=== PATIENT | male | born 1965 | race African-American/Black ===

== ENCOUNTER 2020-10-25 16:00 | Outpatient (RCR) | payer OTHER, SELFPAY ==
[2020-08-13 16:30] LABS: INR 2.9; Prothrombin Time 29.5 Seconds (11.1-14.7)
[2020-09-11 12:50] LABS: INR 2.7; Prothrombin Time 27.7 Seconds (11.1-14.7)
[2020-10-25 16:54] LABS: INR 2.4; Prothrombin Time 25.8 Seconds (11.1-14.7)
== END 2020-11-05 23:59 | disposition home or self-care (01) ==
LOC: ANHLAB 16:00
PROVIDERS: Visit Provider Specialist
DX: I48.0 Paroxysmal atrial fibrillation (principal)
CPT/HCPCS: 36415; 85610

== ENCOUNTER 2020-12-27 14:30 | Outpatient (RCR) | payer OTHER, SELFPAY ==
--- NOTE | 2020-10-16 13:14 | PTOPEVAL ---
Thank you for referring Yvan Bennett to [facility].? The patient is scheduled to be seen for therapy? 1-2 x/week for 5 weeks. Please review, sign, date and return this plan of care VAMSI. I agree with and certify that the following plan of care is medically necessary. 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 He received therapy during his stay 11/26 received prosthetics then received PT, prior to he received restorative therapy. He is lives alone in an apt. Care attended 3 hrs/day to assist with cleaning, laundry, meals. Subjective Information He is able to don/dof Query Text:As Reported By Patient/ prosthesis indep. Family left prosthesis 11 sock ply, no sock ply on right. Modification have been made to improve fit. He uses the ww for mobility. He performs 60 sit-ups, 30 leg lifts, 50 push-ups Previous Treatments Previous Treatments For This Problem SNF therapy Prior Level of Function Home Setting Home Type Apartment Living Situation Alone Support Available Local Family Support Mobility Assistive Devices (Used Last 3 Walker, Wheeled Months) Orthotic/Prosthetic Devices Left Lower Extremity Prosthesis,Right Lower Extremity Prosthesis Pain Assessment Timing of Pain Assessment Timing of Pain Assessment Assessment Self Report Self Report Pain Level 0 Pain Score Pain Score 0: Self Report Upper Extremity Range of Motion General Upper Extremity Range of Motion Reason Not Measured WNL/Left,WNL/Right Lower Extremity Range of Motion General Lower Extremity Range of Motion Reason Not Measured WNL/Left,WNL/Right Gross Lower Extremity Range of Motion passsive gerry hip ext to Comments neutral position Lower Extremity Muscle Strength Testing General Lower Extremity Strength Gross Lower Extremity Strength left hip abd and ext: 4-/5 right hip abd: 3/5 and hip ext 3/5 Upper Extremity Muscle Strength Testing General Upper Extremity Strength Reason Not Measured WNL/Left,WNL/Right Posture St
--- NOTE | 2020-10-28 13:49 | PCPTNOTE ---
Patient called & cancelled scheduled appointment this date due to no ride.
--- NOTE | 2020-10-30 15:42 | PCPTNOTE ---
Patient cancelled scheduled appointment this date due to arriving 75 mins early, & not being able to stay for his 3:30 appointment.
--- NOTE | 2020-11-04 14:45 | PCPTNOTE ---
Patient called & cancelled scheduled appointment this date due to no ride.
--- NOTE | 2020-11-05 16:00 | PCPTNOTE ---
Spoke with Yvan regarding his multiple cancelled visits due to transportation. Stressed the importance of walking and exercises at home to maintain level of function.
--- NOTE | 2020-11-21 16:06 | PTOPEVAL ---
Physical therapy progress note Thank you for referring Yvan Bennett to [facility].?See summary below for progress on functional mobility and goals. The patient is scheduled to be seen for therapy? 1-2 x/week for 4 weeks. Please review, sign, date and return this plan of care VAMSI. I agree with and certify that the following plan of care is medically necessary. 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 He received therapy during his stay 11/26 received prosthestics then received PT, prior to he received restorative therapy. He is lives alone in an apt. Care attended 3 hrs/day to assist with cleaning, laundry, meals. Subjective Information He has phantom pain on left LE Family left prosthesis 11 sock ply, no sock ply on right. He cont to perform HEP for general strengthening exercises. He does feel like he is walking better with therapy. He feel more confident. Pain Assessment Timing of Pain Assessment Timing of Pain Assessment Re-assessment Self Report Self Report Pain Level 0 Pain Score Pain Score 0: Self Report Lower Extremity Range of Motion General Lower Extremity Range of Motion Gross Lower Extremity Range of Motion passsive gerry hip ext to Comments neutral position Lower Extremity Muscle Strength Testing General Lower Extremity Strength Gross Lower Extremity Strength left hip abd: 4-/5 and ext: 4+ /5 right hip abd: 3+/5 and hip ext 4-/5 Special Tests-Lower Extremity Hip Special Tests Hip Special Test Comments AMPPRO 30/47. Balance Assessment 5 Time Sit to Stand Time in Seconds 26 5 Time Sit to Stand Comments use of UE Query Text:Normative Data: If Greater Than 15 Seconds, 74% Increase Risk for Recurrent Falls Gait Assessment Gait Assessment Ambulation Assistive Devices Walker, Wheeled Orthotic/Prosthetic Devices Left Lower Extremity Orthosis, Right Lower Extremity Prosthesis Ambulation Distance 150 Query Text:(Feet) Ambulation Destination In Corridor
--- NOTE | 2020-12-27 15:51 | PTOPEVAL ---
Physical Therapy Discharge Note Thank you for referring Yvan Bennett to [facility].? Yvan has attended 16 therapy visits to address impairments related to gerry LE amputation. As a result of skilled therapy services he demonstrates improved balance, improved leg strength, improved safety with ambulation with walker on all surfaces and use of 2 quad canes on level surfaces. He has reached maximal potential with skilled therapy services at this time. Will DC skilled PT services. Please review, sign, date and return this discharge summary VAMSI. I agree with and certify that the following plan of care is medically necessary. 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 He received therapy during his stay 11/26 received prosthetics then received PT, prior to he received restorative therapy. He is lives alone in an apt. Care attended 3 hrs/day to assist with cleaning, laundry, meals. Subjective Information left prosthesis 11 sock ply, Query Text:As Reported By Patient/ no sock ply on right. Family He has been wearing the new liner since Wed for right AKA with improve fit. He c/o the right prosthesis will come off after therapy sessions when getting out the transport van. Pain Assessment Self Report Pain Level 0 Lower Extremity Range of Motion General Lower Extremity Range of Motion Gross Lower Extremity Range of Motion passive right hip ext to Comments neutral position and left hip 5 dg past Lower Extremity Muscle Strength Testing General Lower Extremity Strength Gross Lower Extremity Strength left hip abd: 4+/5 and ext: 4+ /5 right hip abd: 4/5 and hip ext 4+/5 Transfer Assessment Chair Transfer Assessment Ambulation Assistive Devices Walker, Standard Orthotic/Prosthetic Devices Left Upper Extremity Prosthesis,Right Lower Extremity Prosthesis Chair Transfer Destination Ambulatory Sit to Stand Chair Transfer Ability Independent Stand to Sit Chair Transfer Ability Independent Ability to Transfer In/Out of Chair Independent Chair Transfer Comments demo proper safety and hand placement Balance Assessment Timed Up and
== END 2020-12-30 08:44 | disposition home or self-care (01) ==
LOC: ANHPT 14:30
DX: Z47.81 Encounter for orthopedic aftercare following surgical amputation (principal); Z89.512 Acquired absence of left leg below knee; Z89.611 Acquired absence of right leg above knee
CPT/HCPCS: 97110; 97112; 97116; 97163; 97530; 97761

== ENCOUNTER 2021-02-25 13:58 | Outpatient (RCR) | payer OTHER, SELFPAY ==
[2020-11-28 16:55] LABS: INR 3.1; Prothrombin Time 30.9 Seconds (11.1-14.7)
[2020-12-30 15:54] LABS: INR 3.1; Prothrombin Time 31.4 Seconds (11.1-14.7)
[2021-01-30 14:55] LABS: INR 2.8; Prothrombin Time 28.7 Seconds (11.1-14.7)
[2021-02-25 14:40] LABS: INR 1.9; Prothrombin Time 21.7 Seconds (11.1-14.7)
== END 2021-02-26 23:59 | disposition home or self-care (01) ==
LOC: ANHLAB 13:58
PROVIDERS: Visit Provider Specialist
DX: I48.0 Paroxysmal atrial fibrillation (principal)
CPT/HCPCS: 36415; 85610

== ENCOUNTER 2021-06-20 13:52 | Outpatient (RCR) | payer OTHER, SELFPAY ==
[2021-03-31 14:41] LABS: INR 2.7; Prothrombin Time 27.5 Seconds (11.1-14.7)
[2021-05-02 14:57] LABS: INR 2.5; Prothrombin Time 26.5 Seconds (11.1-14.7)
[2021-06-05 13:59] LABS: INR 3.9; Prothrombin Time 36.8 Seconds (11.1-14.7)
[2021-06-20 14:25] LABS: INR 2.8; Prothrombin Time 28.6 Seconds (11.1-14.7)
== END 2021-06-29 23:59 | disposition home or self-care (01) ==
LOC: ANHLAB 13:52
PROVIDERS: Visit Provider Specialist
DX: I48.0 Paroxysmal atrial fibrillation (principal)
CPT/HCPCS: 36415; 85610

== ENCOUNTER 2021-09-18 14:03 | Outpatient (CLI) | payer OTHER, SELFPAY ==
[2021-09-18 15:14] LABS: Anion Gap 9 mmol/L (8-16); Blood Urea Nitrogen 20 mg/dL (9-20); Calcium 9.4 mg/dL (8.4-10.2); Carbon Dioxide 25 mmol/L (22-30); Chloride 108 mmol/L (98-107); Cholesterol 132 mg/dL (0-200); Estimated Glomerular Filt Rate > 60; Glucose 83 mg/dL (65-110); HDL Direct 39 mg/dL; Sodium 142 mmol/L (137-145); Triglycerides 96 mg/dL (<150)
[2021-09-18 15:23] LABS: Prothrombin Time 45.5 Seconds (11.1-14.7)
[2021-09-18 15:25] LABS: LDL Cholesterol Direct 55 mg/dL
[2021-09-18 16:39] LABS: INR 5.1
[2021-09-18 17:54] LABS: Hemoglobin A1C 5.8 % (<5.7)
== END 2021-09-18 14:04 | disposition home or self-care (01) ==
LOC: ANHLAB 14:09
DX: E78.5 Hyperlipidemia, unspecified (principal); I49.9 Cardiac arrhythmia, unspecified
CPT/HCPCS: 36415; 80048; 80061; 83036; 85610

== ENCOUNTER 2021-09-30 13:59 | Outpatient (RCR) | payer OTHER, SELFPAY ==
[2021-07-18 14:57] LABS: Prothrombin Time 29.8 Seconds (11.1-14.7)
[2021-08-18 10:38] LABS: INR 3.6; Prothrombin Time 34.6 Seconds (11.1-14.7)
[2021-09-30 14:27] LABS: Prothrombin Time 30.4 Seconds (11.1-14.7)
== END 2021-10-16 23:59 | disposition home or self-care (01) ==
LOC: ANHLAB 13:59
PROVIDERS: Visit Provider Specialist
DX: I48.0 Paroxysmal atrial fibrillation (principal)
CPT/HCPCS: 36415; 85610

== ENCOUNTER 2021-11-14 13:38 | Outpatient (RCR) | payer OTHER, SELFPAY ==
[2021-10-20 15:09] LABS: INR 2.7; Prothrombin Time 27.8 Seconds (11.1-14.7)
[2021-11-14 14:46] LABS: INR 3.2
== END 2022-01-18 23:59 | disposition home or self-care (01) ==
LOC: ANHLAB 13:38
PROVIDERS: Visit Provider Specialist
DX: Z51.81 Encounter for therapeutic drug level monitoring (principal); Z79.01 Long term (current) use of anticoagulants
CPT/HCPCS: 36415; 85610

== ENCOUNTER 2022-02-26 13:58 | Outpatient (RCR) | payer OTHER, SELFPAY ==
[2022-02-26 15:31] LABS: Hematocrit 51.7 % (42.0-52.0); Hemoglobin 16.6 g/dL (14.0-18.0); Mean Corpuscular HGB Conc 32.1 g/dl (32-36); Mean Corpuscular Hemoglobin 27.9 pg (26-34); Mean Corpuscular Volume 86.7 fl (80-100); Platelet Count Result 278 k/mm3 (150-375); Red Blood Count 5.96 M/mm3 (4.6-6.20); Red Cell Distribution Width 16.7 % (11.5-14.5); White Blood Count 7.3 K/mm3 (4.5-10.0)
[2022-02-26 15:41] LABS: Anion Gap 8 mmol/L (8-16); Blood Urea Nitrogen 20 mg/dL (9-20); Calcium 9.4 mg/dL (8.4-10.2); Carbon Dioxide 27 mmol/L (22-30); Chloride 108 mmol/L (98-107); Cholesterol 134 mg/dL (0-200); Estimated Glomerular Filt Rate > 60; Glucose 88 mg/dL (65-110); HDL Direct 44 mg/dL; Potassium 3.8 mmol/L (3.4-5.0); Sodium 143 mmol/L (137-145); Triglycerides 81 mg/dL (<150)
[2022-02-26 15:53] LABS: LDL Cholesterol Direct 67 mg/dL
== END 2022-05-27 23:59 | disposition home or self-care (01) ==
LOC: ANHLAB 13:58
DX: G54.6 Phantom limb syndrome with pain (principal); Z89.512 Acquired absence of left leg below knee; Z89.511 Acquired absence of right leg below knee
CPT/HCPCS: 36415; 80048; 80061; 85027

== ENCOUNTER 2022-12-22 11:55 | Outpatient (CLI) | payer OTHER, SELFPAY ==
[2022-12-22 12:37] LABS: Hemoglobin 16.1 g/dL (14.0-18.0); Mean Corpuscular HGB Conc 32.2 g/dl (32-36); Mean Corpuscular Volume 87.1 fl (80-100); Mean Platelet Volume 10.4 fl (7.4-10.4); Platelet Count Result 247 k/mm3 (150-375); Red Blood Count 5.74 M/mm3 (4.6-6.20); Red Cell Distribution Width 15.6 % (11.5-14.5)
[2022-12-22 12:40] LABS: Alanine Aminotransferase 34 U/L (6-50); Albumin Level 4.6 g/dL (3.5-5.1); Alkaline Phosphatase 61 U/L (38-126); Anion Gap 11 mmol/L (8-16); Aspartate Amino Transferase 37 U/L (17-59); Bilirubin,Total 1.7 mg/dL (0.2-1.3); Blood Urea Nitrogen 16 mg/dL (9-20); Calcium 10.1 mg/dL (8.4-10.2); Carbon Dioxide 25 mmol/L (22-30); Chloride 104 mmol/L (98-107); Cholesterol 151 mg/dL (0-200); Estimated Glomerular Filt Rate > 60; Glucose 90 mg/dL (65-110); HDL Direct 48 mg/dL; Potassium 3.7 mmol/L (3.4-5.0); Sodium 140 mmol/L (137-145); Triglycerides 82 mg/dL (<150)
[2022-12-22 12:44] LABS: Hemoglobin A1C 5.5 % (<5.7)
[2022-12-22 12:49] LABS: NT Pro B Type Natriuretic Pept 279 pg/mL (19.9-100)
[2022-12-22 12:52] LABS: LDL Cholesterol Direct 78 mg/dL
[2022-12-22 13:10] LABS: Free T4 Free Thyroxine 2.16 ng/mL (0.78-2.19); Total Triiodothyronine (T3) 1.54 NG/ML (0.97-1.69)
[2022-12-25 13:37] LABS: Lipoprotein A 159 nmol/L (<75)
[2022-12-25 20:18] LABS: CRP, High Sensitivity 0.4 mg/L (***)
== END 2022-12-22 11:56 | disposition home or self-care (01) ==
LOC: ANHLAB 11:58
PROVIDERS: Visit Provider Internal Medicine Cardiovascular Disease
DX: E78.5 Hyperlipidemia, unspecified (principal); I48.0 Paroxysmal atrial fibrillation; J96.01 Acute respiratory failure with hypoxia; N18.9 Chronic kidney disease, unspecified; I80.9 Phlebitis and thrombophlebitis of unspecified site; F19.10 Other psychoactive substance abuse, uncomplicated; A40.1 Sepsis due to streptococcus, group B; I21.01 ST elevation (STEMI) myocardial infarction involving left main coronary artery; H52.10 Myopia, unspecified eye; H33.319 Horseshoe tear of retina without detachment, unspecified eye; I70.263 Atherosclerosis of native arteries of extremities with gangrene, bilateral legs; R57.0 Cardiogenic shock; K12.2 Cellulitis and abscess of mouth; Z13.6 Encounter for screening for cardiovascular disorders; Z89.611 Acquired absence of right leg above knee; Z89.512 Acquired absence of left leg below knee
CPT/HCPCS: 36415; 80053; 80061; 83036; 83695; 83735; 83880; 84439; 84443; 84480; 85027; 86141

== ENCOUNTER 2023-01-18 14:11 | Outpatient (CLI) | payer OTHER, SELFPAY ==
[2023-01-18 15:06] LABS: Alanine Aminotransferase 37 U/L (6-50); Albumin Level 4.4 g/dL (3.5-5.1); Alkaline Phosphatase 67 U/L (38-126); Anion Gap 6 mmol/L (8-16); Aspartate Amino Transferase 35 U/L (17-59); Bilirubin,Total 1.7 mg/dL (0.2-1.3); Blood Urea Nitrogen 17 mg/dL (9-20); Calcium 9.4 mg/dL (8.4-10.2); Carbon Dioxide 27 mmol/L (22-30); Chloride 107 mmol/L (98-107); Cholesterol 135 mg/dL (0-200); Estimated Glomerular Filt Rate > 60; Glucose 87 mg/dL (65-110); HDL Direct 44 mg/dL; Potassium 3.6 mmol/L (3.4-5.0); Sodium 140 mmol/L (137-145); Triglycerides 68 mg/dL (<150)
[2023-01-18 15:17] LABS: LDL Cholesterol Direct 67 mg/dL
== END 2023-01-18 14:12 | disposition home or self-care (01) ==
DX: I10 Essential (primary) hypertension (principal)
CPT/HCPCS: 36415; 80053; 80061

== ENCOUNTER 2024-10-25 14:00 | Outpatient (RCR) | payer BC, SELFPAY ==
--- NOTE | 2024-09-11 15:32 | OPREHPOC ---
Outpatient Therapy Plan of Care This is a Multidisciplinary Plan of Care that may contain components documented by all disciplines (PT, OT, and ST.) PT Problem 1 PT Problem #1 Knowledge Deficit PT Goal 1 Goal / Goal Update *independent with HEP Target Visit 8 PT Problem 2 PT Problem #2 Impaired Functional Mobility PT Goal 1 Goal / Goal Update improve gait and balance skills, to improve mobility 1* 5 reps sit/stand time of 30 seconds 2* sit/stand with use of 1 UE 3* 6 minute walking test distance of 850' with wheeled walker 4* Fair balance score of 40/56 5* pt ambulate with quad cane 150' Target Visit 8
--- NOTE | 2024-09-11 15:32 | PTOPEVAL1 ---
Assessment and note entered by Maira Herr PT Evaluation Information Assessment Status Evaluation ICD-10 Condition Codes (PT) Difficulty Walking R26.2,Abnormalities of gait and mobility R26.9 Other ICD-10 Condition Codes ( Z89.611 R above knee & L below knee amputations PT) Subjective Information about one month ago, received new R and L prosthesis from [facility]; R AKA & L BKA since 2019 previously about 2 years ago, with therapy used 2 quad canes but was not comfortable with them have power chair for distances; no issues with his skin; history of finger partial amputations activity: have assist 3 & 1/2 days with assist- home cleaning, food prep, laundry; indep with self care; live in apartment complex- walks every day in the hallways ` 1000'; goal: able to walk without anything; walk better with new prosthesis' Reported Pain Level Pain Score 0: Self Report Assessment PT Clinical Summary Yvan has the diagnosis of R AKA and L BKA in 2019 and now has new prosthesis, from about 1 month ago. LE functional scale self rating of 30% limitation in activity level. He is using the wheeled walker and has not had any falls. And is working with athletic trainer for adjustments of legs. He lives alone and has caregiver assist for home tasks. With the evaluation: Fair balance score of 29/56; 6 minute walking test distance with a wheeled walker, 725'; gait is independent on level surface, with his R leg in ER; Skilled PT services are indicated for gait and balance retraining, to improve mobility and education for HEP and gait training. Plan of Care Interventions Gait Training,Neuro Re-education,Patient/Caregiver Education,Therapeutic Activities,Therapeutic Exercise PT Services Indicated Yes Treatment Frequency and 2x/wk for 8 visits Duration These treatments will address the objective and functional deficits as defined above. The patient will be advanced safely and appropriately in order for the patient to progress towards his/her prior level of function. Additional exercises will be introduced and as well as a comprehensive home exercise program upon discharge, if needed, ?to ensure carryover of functional gains achieved in the clinic. This treatment plan has been reviewed and agreement upon by the patient.
--- NOTE | 2024-09-11 16:19 | PCPTNOTE ---
pt was 10 minutes late for initial evaluation.
--- NOTE | 2024-10-02 10:59 | PCPTNOTE ---
Pt cancelled due to prosthetic appt per front office. AKS
== END 2024-12-10 23:59 | disposition home or self-care (01) ==
LOC: ANHPT 14:00
DX: Z47.81 Encounter for orthopedic aftercare following surgical amputation (principal); Z89.611 Acquired absence of right leg above knee; Z89.612 Acquired absence of left leg above knee
CPT/HCPCS: 97110; 97116; 97161; 97530